=== PATIENT | female | born 1980 | race Caucasian/White ===

== ENCOUNTER 2019-08-09 10:07 | Emergency (ER) | payer OTHER, SELFPAY ==
--- NOTE | ~2019-08-09 | XR_ITS ---
EXAMINATION: XR foot LT min 3V DATE: 08/09/2019 10:31 INDICATION: Left foot injury and pain. TECHNIQUE: 4 views of left foot were obtained. COMPARISON: None. FINDINGS: There is mild hallux valgus. No fracture. There is mild osteoarthritis of first metatarsoph alangeal joint. There is an enthesophyte at posterior aspect of calcaneal tuberosity. IMPRESSION: 1. Mild hallux valgus. 2. Mild osteoarthritis of first metatarsophalangeal joint. Reviewed, dictated and finalized at location A. [employer]
[2019-08-09 10:19] VITALS: BP 126/76; PULSE 95; RESP 16; TEMP 36.1; O2SAT 100
--- NOTE | 2019-08-09 10:24 | ED.LOWEXIN ---
HPI - Extremity Injury (Lower) General Chief Complaint: Extremity Injury, Lower Stated Complaint: INJURED L ANKLE/FOOT Time Seen by Provider: 08/09/19 10:19 Source: patient and RN notes reviewed Mode of arrival: other Limitations: no limitations History of Present Illness HPI Narrative: Pt is a 39 y/o female, who is a smoker, who presents to the with c/o 5/10 left lateral foot pain that began this morning after letting her dogs out. Pt believes she rolled her ankle. She notes that her pain is aggravated with bearing her weight. Pt denies numbness and tingling. complaint: foot injury Onset (ago): minute(s) Place: street/outdoors Severity: moderate Severity scale (1-10): 5 Exacerbating factors: weight bearing Context: walking Associated symptoms: able to partially bear weight and ambulatory Other symptoms: none Related Data Home Medications Medication Instructions Recorded Confirmed gabapentin 100 mg PO HS 08/09/19 08/09/19 Allergies Allergy/AdvReac Type Severity Reaction Status Date / Time fexofenadine Allergy Severe FACIAL Verified 08/09/19 10:14 SWELLING ciprofloxacin Allergy Unknown Hives Verified 08/09/19 10:14 METOCLOPRAMIDE HCL Allergy Mild Nervousness Uncoded 08/09/19 10:14 CIPROFLOXACIN HCL Allergy Unknown Hives Uncoded 08/09/19 10:14 Review of Systems Review of Systems: Narrative: General/Constitutional: Denies: weight loss,fever Eyes: Denies: Redness,discharge Ears/Nose/Throat: Denies: Epistaxis,ear discharge Respiratory: Denies: Hemoptysis Gastrointestinal: Denies: Vomiting, Bleeding-rectal Skin: Denies: Lumps, eruption Neurologic: Denies: Focal Weakness,Sz, numbness, tingling Extremeties: Reports: left lateral foot pain Hematologic: Denies: Petechiae/Purpura All Other Systems: Reviewed and Negative All systems reviewed & are unremarkable except as noted in HPI and below PMFSH Past Medical History Medical History (Updated 08/09/19 @ 10:46 by Jamal Moreno MD) Anemia Kidney stone Polyhydramnios UTI (urinary tract infection) Surgical History Surgical History (Updated 08/09/19 @ 10:38 by Caroline Garcia) H/O lithotripsy x4 H/O total hysterectomy History of tubal ligation Hx of section x3 Hx of cholecystectomy Hx of fusion of cervical spine Family History Family History (Updated 08/09/19 @ 10:40 by Caroline Garcia) Father Hypertension Other Diabetes mellitus Social History Social History (Updated 08/09/19 @ 10:39 by Caroline Garcia) Smoking packs per day: 1 Smoking cigarettes per day: 20.0 Years smoked: 18 Smoking pack-years: 18.00 Smoking status: Current every day smoker Tobacco type: cigarettes Second hand tobacco smoke exposure: Yes Comments At time of signature, agree with nursing past medical, surgical, social and family history. There is no relevant family history pertinent to the presenting complaint. Exam Narrative: Exam Narrative: General Appearance: Well appearing, Well nourished, No distress EYE: PERRLA, EOMI, Conjunctiva clear Ears: External ear normal, Auditory canal normal Nose: Normal nose, Nares clear Mouth/Throat: Normal appearing, Normal lips Neck: Supple Respiratory: Airway patent, No respiratory distress Musculoskeletal: Normal strength (mostly intact, limited flexion/extension by pain), Tenderness (laterally, with mild decreased ROM), Swelling (laterally), Other (no anterior drawer, no collateral laxity, no Achilles tenderness, no fifth MT tenderness) Skin: Warm, Dry, Normal color Neurological: A&O x3, Speech clear, CN II-XII intact Psychiatric: Normal mood, Normal affect Course Vital Signs Vital signs: Vital Signs Temperature 97.0 F L 08/09/19 10:19 Pulse Rate 95 08/09/19 10:19 Respiratory Rate 16 08/09/19 10:19 Blood Pressure 126/76 08/09/19 10:19 Pulse Oximetry 100 08/09/19 10:19 Temperature 97.0 F L 08/09/19 10:19 Pulse Rate 95 08/09/19 10:19 Respirator
== END 2019-08-09 10:50 | disposition home or self-care (01) ==
PROVIDERS: Emergency Provider Emergency Medicine; PCP Family Medicine
DX: S93.402A Sprain of unspecified ligament of left ankle, initial encounter (principal); X50.9XXA Other and unspecified overexertion or strenuous movements or postures, initial encounter; F17.210 Nicotine dependence, cigarettes, uncomplicated
CPT/HCPCS: 73630; 99213; G0463

== ENCOUNTER 2020-06-15 06:42 | Outpatient (NON) | payer OTHER, SELFPAY ==
[2020-06-17 21:25] LABS: SARS-CoV-2 RNA PCR Negative
== END 2020-06-15 06:43 ==
LOC: ANHCOVIDDT 07:06
PROVIDERS: PCP Family Medicine; Visit Provider Physician Assistant
DX: Z20.828 Contact with and (suspected) exposure to other viral communicable diseases (principal); R09.89 Other specified symptoms and signs involving the circulatory and respiratory systems
CPT/HCPCS: 87635; C9803; U0003

== ENCOUNTER 2021-09-27 16:55 | Outpatient (CLI) | payer OTHER, SELFPAY ==
--- NOTE | ~2021-09-27 | MR_ITS ---
EXAMINATION: MR brain/brain stem wo con DATE: 09/27/2021 17:53 INDICATION: Foreign half years of migraines with progressively worsening left-sided facial numbness a nd pain. TECHNIQUE: Magnetic resonance imaging (MRI) of the brain and brainstem was performed without intraven ous contrast. Sequences included sagittal and axial T1-weighted FSE, axial diffusion-weighted FS EPI, axial T2*-weighted GRE, axial T2-weighted FLAIR Propeller, axial T2-weighted Propeller, 3-D axial T1 -weighted COLIN, small [id number] coronal FIESTA and small [id number]-[id number]-[id number] coronal T1-weighted FSE. Apparent diffusion coefficient (ADC) maps were created. COMPARISON: 05/31/2017 FINDINGS: There are no areas of restricted diffusion to suggest acute infarction. No intracranial hemorrhage or abnormal intracranial mass lesion. There are no intraparenchymal signal abnormalities seen on the ot her pulse sequences. The ventricles are symmetric and normal in size. There are no abnormal extra-axi al fluid collections. Normal seventh/eighth cranial nerve complexes. No cerebellopontine angles mass es. No evidence of mastoid or middle ear fluid. Flow voids are seen in the cerebral arteries on th e T2-weighted sequences consistent with their expected patency. Visualized orbits and soft tissues ar e unremarkable. IMPRESSION: 1. Normal brain MR. Reviewed, dictated and finalized at location A. ULTING NURSE IMPRESSION: 1. Normal brain MR.
== END 2021-09-27 16:56 | disposition home or self-care (01) ==
LOC: ANHIMG 17:01
PROVIDERS: PCP Family Medicine; Visit Provider Physical Medicine & Rehabilitation Pain Medicine
DX: R94.2 Abnormal results of pulmonary function studies (principal)
CPT/HCPCS: 70551

== ENCOUNTER 2022-01-01 16:50 | Emergency (ER) | payer OTHER, SELFPAY ==
--- NOTE | ~2022-01-01 | XR_ITS ---
EXAM: XR abdomen/kub 1V DATE: 01/01/2022 17:09 HISTORY: left flank pain . COMPARISON: None available. FINDINGS: Cholecystectomy clips. Surgical clips over the left abdomen and upper pelvis. Normal bowel gas pattern. No organomegaly. 5 mm left lower pole calcification. Regional bones and soft tissues no rmal for age. IMPRESSION: Left nephrolithiasis. No radiographic evidence of bowel obstruction or ileus. Reviewed, dictated and finalized at location K.
--- NOTE | 2022-01-01 17:03 | ED.FEMALEGU ---
HPI - Female Genitourinary General Chief complaint: Urogenital-Female Stated complaint: uti symptoms Time Seen by Provider: 01/01/22 17:03 Source: patient Mode of arrival: ambulatory Limitations: no limitations History of Present Illness HPI Narrative: 41 yo F presents with c/o intermittent dysuria, urgency, frequency, L flank pain since 12/18. Had telehealth visit with PCP and prescribed bactrim 12/19. did not give UA or culture prior to starting abx. States symptoms improved but not completely resolved. Then did UA that showed leukocytes. did 1 wk macrobid. Urine culture was neg. Reporting symptoms now worse. L flank pain radiating to L lower ABD. did call urologist 12/[address] was [address] needed CT scan. PCP ordered CT scan and is 01/03 but pt did not feel she could wait til then. Called ER and was told it was very busy and to come to [facility]. pt denies fever/chills. no N/V. hx of kidney stones. All systems reviewed and negative except as noted above. Related Data Allergies Allergy/AdvReac Type Severity Reaction Status Date / Time fexofenadine Allergy Severe FACIAL Verified 01/01/22 17:02 SWELLING ciprofloxacin Allergy Unknown Hives Verified 01/01/22 17:02 METOCLOPRAMIDE HCL Allergy Mild Nervousness Uncoded 01/01/22 17:02 CIPROFLOXACIN HCL Allergy Unknown Hives Uncoded 01/01/22 17:02 Review of Systems Review of Systems: CONSTITUTIONAL: Denies fever, chills, or sweats. EYES: Denies visual changes, redness, or discharge. ENT: Denies rhinorrhea, congestion, sore throat, or otalgia. CARDIOVASCULAR: Denies chest pain, palpitations, or edema. RESPIRATORY: Denies cough or dyspnea. GASTROINTESTINAL: Reports left lower abdominal pain denies nausea, vomiting, or diarrhea. GENITOURINARY: Reports dysuria, frequency, urgency, left flank pain. Denies hematuria. SKIN: Denies rash or itching. MUSCULOSKELETAL: Denies back pain, joint pain, or myalgia. NEUROLOGIC: Denies headache, numbness, or weakness. PSYCHIATRIC: Denies anxiety or depression. All other systems reviewed are negative, except as documented in HPI. [facility] Past Medical History Medical History (Updated 01/01/22 @ 17:33 by Jaqui Bailey NP) Anemia Depression Dysuria Kidney stone Left flank pain Ovarian cyst Polyhydramnios UTI (urinary tract infection) Surgical History Surgical History H/O lithotripsy (~2014) x4 H/O mastectomy (~2014) H/O total hysterectomy (~2014) History of tubal ligation Hx of section x3 Hx of cholecystectomy (~2013) Hx of fusion of cervical spine (~2008) Family History Family History Father Hypertension Mother Breast cancer Grandparent Heart disease Diabetes mellitus Cerebrovascular accident Social History Social History Smoking packs per day: 1 Smoking cigarettes per day: 20.0 Years smoked: 23 Smoking pack-years: 23.00 Smoking status: Current every day smoker Tobacco type: cigarettes Second hand tobacco smoke exposure: Yes Comments At time of signature, agree with nursing past medical, surgical, social and family history. There is no relevant family history pertinent to the presenting complaint. Exam Narrative: GENERAL: This is a well-nourished, well-developed patient, in no apparent distress. HEAD: normocephalic, atraumatic. EYES: PERRL. Sclera clear/white. Vision is grossly intact. EARS: External ears normal NOSE: External nose normal NECK: Neck supple, non-tender without lymphadenopathy, masses or thyromegaly. CARDIOVASCULAR: Regular rate and rhythm without murmurs, gallops, or rubs. RESPIRATORY: Clear to auscultation. Breath sounds equal bilaterally. No wheezes, rales, or rhonchi. GASTROINTESTINAL: Abdomen soft, non-tender, nondistended. Bowel sounds are active. No hepato-splenomegaly, or palpable masses. No guardin
[2022-01-01] MEDS: KETOROLAC (*BKC) 60 MG/2 ML VIAL IM (17:33)
[2022-01-01 17:49] VITALS: BP 120/60; PULSE 66; RESP 16; TEMP 36.9; O2SAT 97
== END 2022-01-01 17:47 | disposition home or self-care (01) ==
PROVIDERS: Emergency Provider Nurse Practitioner Family; PCP Family Medicine
DX: N20.0 Calculus of kidney (principal); F17.210 Nicotine dependence, cigarettes, uncomplicated
CPT/HCPCS: 74018; 81003; 87077; 87086; 87186; 96372; 99213; G0463; J1885

== ENCOUNTER 2022-01-03 17:33 | Outpatient (CLI) | payer OTHER, SELFPAY ==
--- NOTE | ~2022-01-03 | CT_ITS ---
EXAMINATION: CT abdomen pelvis wo con DATE: 01/03/2022 17:47 INDICATION: Left flank pain, hx of kidney stones TECHNIQUE: Computed tomography (CT) of the abdomen and pelvis was performed without intravenous contr ast. Automated exposure control and iterative reconstruction technique were employed. The dose-length product was 330.07 mGy-cm. COMPARISON: 10/19/2013. FINDINGS: Lower thorax: Unremarkable Liver: Normal. Biliary/Gallbladder: Gallbladder is absent. No bile duct dilation. Pancreas: No mass or duct dilation. Spleen: Normal. Adrenals:No mass. Kidneys: No mass. Chronic stable mild left pelviectasis. Stable 6 mm left lower pole calyceal calcifi cation. GI tract: No small or large bowel dilation. Normal appendix. Mesentery/Peritoneum: No ascites, mass, or free air. Retroperitoneum: No mass. Pelvis: Tiny possible calcification in the distal left ureter as it crosses the iliac vessels, truly at the limits of visibility by CT, alternatively may represent artifact. Soft Tissues: Soft tissues and body wall unremarkable. Bones: No acute osseous finding. IMPRESSION: Tiny, 1 mm calcific density projecting in the distal left ureter may represent a tiny distal collecti ng system stone versus artifact. No new hydronephrosis. Stable left nephrolithiasis and pelviectasis. Reviewed, dictated and finalized at location K. IMPRESSION: Tiny, 1 mm calcific density projecting in the distal left ureter may represent a tiny distal collecting system stone versus artifact. No new hydronephrosis. S table left nephrolithiasis and pelviectasis.
== END 2022-01-03 17:34 | disposition home or self-care (01) ==
PROVIDERS: PCP Family Medicine; Visit Provider Physician Assistant Medical
DX: R10.9 Unspecified abdominal pain (principal); N20.0 Calculus of kidney
CPT/HCPCS: 74176

== ENCOUNTER 2022-01-05 07:48 | Day surgery (SDC) | payer OTHER, SELFPAY ==
[2022-01-05] VITALS (10 sets, daily range): BP systolic 80–122; BP diastolic 50–67; PULSE 60–109; RESP 12–16; TEMP 35.7–37.1; O2SAT 98–99
--- NOTE | ~2022-01-05 | XR_ITS ---
EXAMINATION: XR stent kub - surgery DATE: 01/05/2022 14:20 CDT INDICATION: LEFT SIDE STENT . TECHNIQUE: 2 fluoroscopic images of the left mid abdomen and pelvis were obtained during ureteral aditi nt placement performed by the surgeon. I was not present in the operating room. Fluoroscopy exposure time was 13.9 seconds. Cumulative dose was 0.32107 mGy2. COMPARISON: None FINDINGS: Fluoroscopic images document placement of a left ureteral stent, the superior pigtail is unravelled b ut projects over the expected location of the left renal pelvis. The distal coil projects over the bl adder. IMPRESSION: Fluoroscopic documentation of a left ureteral stent placement. Reviewed, dictated and finalized at location K.
--- NOTE | 2022-01-05 08:06 | ED.ABDPAIN ---
HPI - Abdominal Pain General Chief Complaint: Abdominal Pain Stated Complaint: Kidney Stone Pain Time Seen by Provider: 01/05/22 07:58 Source: RN notes reviewed History of Present Illness HPI narrative: Patient presents emergency department from home for abdominal pain. Patient states symptoms began approximately 5 days ago. States that she began to have pain in her left flank and her left side of her abdomen she had gone to urgent care at that time and a KUB had shown a kidney stone states that time she had also been diagnosed with a UTI and been started on Augmentin and Flomax she had follow-up with her PCP 2 days later had a CT scan showing stone has not been able to get into urology until this coming Saturday states the pain is continued to worsen she states is now associated with nausea as well as diarrhea she denies any fevers or chills chest pain shortness of breath vomiting or any other symptoms states she took oral Toradol at home this morning with no relief states she does have a history of kidney stones in the past Related Data Allergies Allergy/AdvReac Type Severity Reaction Status Date / Time fexofenadine Allergy Severe FACIAL Verified 01/05/22 09:08 SWELLING ciprofloxacin Allergy Unknown Hives Verified 01/05/22 09:08 METOCLOPRAMIDE HCL Allergy Mild Nervousness Uncoded 01/05/22 08:16 CIPROFLOXACIN HCL Allergy Unknown Hives Uncoded 01/05/22 08:16 Review of Systems Review of Systems: Gen.: Denies fevers or chills ENT: Denies congestion Respiratory: Denies shortness of breath or cough CV: Denies chest pain or palpitations GI: See HPI denies burning, urgency, frequency or hematuria Musculoskeletal: Denies back pain or muscle pain Neuro: Denies numbness, tingling, weakness or focal weakness Skin: Denies rash Except as documented, all other systems reviewed and negative PMF Past Medical History Medical History Anemia Depression Dysuria Kidney stone Left flank pain Ovarian cyst Polyhydramnios UTI (urinary tract infection) Surgical History Surgical History H/O lithotripsy (~2014) x4 H/O mastectomy (~2014) H/O total hysterectomy (~2014) History of tubal ligation Hx of section x3 Hx of cholecystectomy (~2013) Hx of fusion of cervical spine (~2008) Family History Family History Father Hypertension Mother Breast cancer Grandparent Heart disease Diabetes mellitus Cerebrovascular accident Social History Social History Smoking packs per day: 1 Smoking cigarettes per day: 20.0 Years smoked: 23 Smoking pack-years: 23.00 Smoking status: Current every day smoker Tobacco type: cigarettes Second hand tobacco smoke exposure: Yes Exam Narrative: APPEARANCE: No acute distress, nontoxic, resting in bed HEENT: Normocephalic, atraumatic, OMM RESPIRATORY: No respiratory distress, clear to auscultation bilaterally with no rhonchi wheezing or rales CARDIOVASCULAR: RRR s murmur ABDOMINAL: Soft nondistended tender palpation lateral quadrant left lower quadrant no tenderness right upper quadrant right lower quadrant no rebound or guarding, left flank tenderness MUSCULOSKELETAl: Moves all extremities. No clubbing, cyanosis or edema. NEURO: Awake and alert. Following commands, speech normal, no focal deficits SKIN:: Warm, dry. Normal Color PSYCHIATRIC: Normal affect/mood Course Course Emergency Course: Reviewed old record including CT scan from [address] waldrop history reviewed imaging and lab work we will plan to take patient to the OR for stent today And plan for OR in agreement at this time Vital Signs Vital signs: Vital Signs Temperature 96.3 F L 01/05/22 07:57 Pulse Rate 109 H 01/05/22 07:57 Respiratory Rate 16 01/05/22 07:57 Pu
[2022-01-05 08:20] LABS: Basophils Absolute Auto 0.1 K/mm3 (0.0-0.1); Basophils Percent Auto 0.5 % (0.2-1.2); Eosinophils Absolute Auto 0.2 K/mm3 (0-0.3); Eosinophils Percent Auto 2.1 % (0-4.4); Hematocrit 45.2 % (37.0-47.0); Hemoglobin 16.1 g/dL (12.0-15.0); Immature Granulocyte Absolute 0.02 K/mm3 (0.00-0.031); Immature Granulocyte Percent A 0.2 % (0-0.5); Lymphocytes Absolute Auto 2.08 K/mm3 (0.9-3.2); Lymphocytes Percent Auto 22.6 % (18.3-44.2); Mean Corpuscular HGB Conc 35.6 g/dl (32-36); Mean Corpuscular Hemoglobin 33.2 pg (26-34); Mean Corpuscular Volume 93.2 fl (80-100); Mean Platelet Volume 9.6 fl (7.4-10.4); Monocytes Absolute Auto 0.6 K/mm3 (0.1-0.6); Monocytes Percent Auto 6.5 % (2.6-8.5); Neutrophils Absolute Auto 6.3 K/mm3 (1.3-6.7); Neutrophils Percent Auto 68.1 % (45.5-73.1); Platelet Count Result 181 k/mm3 (150-375); Red Blood Count 4.85 M/mm3 (4.2-5.4); White Blood Count 9.2 K/mm3 (4.5-10.0)
[2022-01-05 08:28] LABS: Alanine Aminotransferase 27 U/L (6-35); Albumin Level 4.9 g/dL (3.5-5.1); Alkaline Phosphatase 91 U/L (38-126); Anion Gap 9 mmol/L (8-16); Aspartate Amino Transferase 27 U/L (14-36); Blood Urea Nitrogen 21 mg/dL (7-17); Calcium 9.5 mg/dL (8.4-10.2); Carbon Dioxide 22 mmol/L (22-30); Chloride 111 mmol/L (98-107); Estimated CRCL calculation 102 ml/min; Estimated Glomerular Filt Rate > 60; Glucose 105 mg/dL (65-110); Lipase 62 U/L (23-300); Potassium 4.4 mmol/L (3.4-5.0); Sodium 142 mmol/L (137-145)
[2022-01-05 08:36] LABS: Add Urine Microscopic? YES; Appearance Urine Cloudy (Clear); Bilirubin Urine Negative (Negative); Blood Urine 2+ (Negative); Color Urine Yellow (Yellow); Glucose Urine UA Negative (Negative); Ketones Urine Negative (Negative); Leukocyte Esterase Ur 2+ LEU/UL (Negative); Nitrate Urine Negative (Negative); Protein Urine 2+ mg/dL (Negative); Specific Grav Ur >= 1.030 (1.001-1.035); Urobilinogen Urine 0.2 mg/dL (<2.0); pH Urine 5.5 (5.0-9.0)
[2022-01-05 08:43] LABS: Lactic Acid Reflex 2.1 mmol/L (0.7-2.0)
[2022-01-05 08:45] LABS: Bacteria Urine 2+ /hpf; Mucus Urine Few /lpf; RBC Urine 21-50 /hpf (0-2); Squamous Epithelial Cell Urine Many /hpf (Few); WBC Clumps Urine Present /HPF; WBC Urine >75 /hpf
[2022-01-05] MEDS: SODIUM CHLORIDE 0.9% IV 1,000 ML 999 ML IV CONT (09:07)
[2022-01-05] MEDS: MORPHINE SULFATE (*CRX) 4 MG/ML INJ IV PUSH (09:08)
[2022-01-05] MEDS: ONDANSETRON INJ 4 MG/2 ML VIAL IV PUSH (09:08)
--- NOTE | 2022-01-05 09:37 | PM.HPGS ---
History of Present Illness History of Present Illness Consent: Risks, benefits, and alternatives have been discussed and questions answered. Patient agrees to proceed with procedure. Chief complaint: Kidney Stone Pain Narrative: Vy Guthrie is a 41 year old female, Who has a history of urolithiasis requiring ESWL several years ago, the that has presented to the ER 3 times in last 5 days with left flank pain and irritable voiding symptoms. This pain is intermittent in nature but can be severe at times. It is associated with nausea vomiting in addition to irritable voiding. Urine culture obtained on 01/01 grew E coli. She has had little improvement in symptoms with oral antibiotics (most recently Augmentin ). Throughout this she denies fevers chills gross hematuria. Imaging demonstrates a 5-6 mm left renal pelvic stone and a suggestion of a 1 mm stone in the left mid ureter without significant hydronephrosis point. After discussion of options we elected for cystoscopy with left ureteral stent placement. Following treatment her infection we will schedule left ESWL. Review of Systems Cardiovascular: Cardiovascular: Denies chest pain, Denies lightheadedness, Denies palpitations and Denies dyspnea Respiratory: Respiratory: Denies dyspnea Gastrointestinal: Gastrointestinal: Denies diarrhea, Denies nausea and Denies vomiting Genitourinary: Genitourinary: Denies hematuria and Denies dysuria Endocrine: Endocrine: Denies palpitations PMFSH Past Medical History Medical History Anemia Depression Dysuria Kidney stone Left flank pain Ovarian cyst Polyhydramnios UTI (urinary tract infection) Surgical History Surgical History H/O lithotripsy (~2014) x4 H/O mastectomy (~2014) H/O total hysterectomy (~2014) History of tubal ligation Hx of section x3 Hx of cholecystectomy (~2013) Hx of fusion of cervical spine (~2008) Family History Family History Father Hypertension Mother Breast cancer Grandparent Heart disease Diabetes mellitus Cerebrovascular accident Social History Social History Smoking packs per day: 1 Smoking cigarettes per day: 20.0 Years smoked: 23 Smoking pack-years: 23.00 Smoking status: Current every day smoker Tobacco type: cigarettes Second hand tobacco smoke exposure: Yes Meds Home Medications and Allergies Home Medications Medication Instructions Recorded Confirmed Type amoxicillin 875 mg-potassium 1 tablet PO BID 7 days #14 tabs 01/01/22 Rx clavulanate 125 mg tablet indomethacin 25 mg capsule 25 mg PO TID PRN pain #30 caps 01/01/22 Rx tamsulosin 0.4 mg capsule (Flomax) 0.4 mg PO DAILY #30 caps 01/01/22 Rx tramadol 50 mg tablet 50 mg PO Q6H PRN pain #30 tabs 01/04/22 Rx Allergies Allergy/AdvReac Type Severity Reaction Status Date / Time fexofenadine Allergy Severe FACIAL Verified 01/05/22 09:08 SWELLING ciprofloxacin Allergy Unknown Hives Verified 01/05/22 09:08 METOCLOPRAMIDE HCL Allergy Mild Nervousness Uncoded 01/05/22 08:16 CIPROFLOXACIN HCL Allergy Unknown Hives Uncoded 01/05/22 08:16 Vital Signs Vital Signs - 24 hr 01/05/22 07:57 01/05/22 08:10 01/05/22 08:09 Temperature 96.3 F L 98.8 F 98.8 F Pulse Rate 109 H Respiratory Rate 16 Pulse Oximetry 98 Oxygen Delivery Room Air Exam Const: General: no acute distress Resp: Effort & Inspection: normal respiratory effort GI: Inspection: non-distended GI Palp: No abdominal tenderness and No Guarding due to palpation present (GI) Auscultation: normal bowel sounds Assessment and Plan Assessment and plan (1) Left renal stone: Code(s): N20.0 - Calculus of kidney Status: Acute Assessment and Plan: Cystoscopy, left uretera
--- NOTE | 2022-01-05 09:41 | WPDHPUPDATE1 ---
History and Physical Update Update Date/Time: 01/05/22 09:41 History and Physical has been reviewed, including an updated exam of the patient. There are NO changes in the patient's condition. Risks, benefits, and alternatives have been discussed and questions answered. Patient agrees to proceed with procedure.
[2022-01-05] MEDS: LACTATED RINGERS 1,000 ML 30 ML IV CONT (10:25)
[2022-01-05] MEDS: HYDROmorphone HCL INJ (*CRX) 1 MG/ML SYR IV PUSH ×2 (10:56→13:22)
[2022-01-05 11:24] LABS: Reflex Lactic Acid Yes or No Add Lactic
--- NOTE | 2022-01-05 14:05 | WPDANESEPPF ---
Anes - Initial Pre Proc Eval Procedure: Operation Date: 01/05/22 14:30 Proposed Procedures p Cystoscopy, Left Stent Placement - Riley Lau MD Date/Time: 01/05/22 14:05 Surgeon: Riley Lau MD Pre Op Diagnosis: Kidney Stone Pain Patient Data Age: 41 Gender: F Height: 1.78 m Weight: 98.18 kg Last Vital Signs Temp 36.2 C L 01/05/22 10:25 Pulse 63 01/05/22 10:25 Resp 16 01/05/22 10:25 BP 99/59 L 01/05/22 10:25 Pulse Ox 99 01/05/22 10:25 O2 Del Method Room Air 01/05/22 10:25 Allergies Allergy/AdvReac Type Severity Reaction Status Date / Time fexofenadine Allergy Severe FACIAL Verified 01/05/22 09:08 SWELLING ciprofloxacin Allergy Unknown Hives Verified 01/05/22 09:08 METOCLOPRAMIDE HCL Allergy Mild Nervousness Uncoded 01/05/22 08:16 CIPROFLOXACIN HCL Allergy Unknown Hives Uncoded 01/05/22 08:16 Home Medications Medication Instructions Recorded Confirmed Type amoxicillin 875 mg-potassium 1 tablet PO BID 7 days #14 tabs 01/01/22 Rx clavulanate 125 mg tablet indomethacin 25 mg capsule 25 mg PO TID PRN pain #30 caps 01/01/22 Rx tamsulosin 0.4 mg capsule (Flomax) 0.4 mg PO DAILY #30 caps 01/01/22 Rx tramadol 50 mg tablet 50 mg PO Q6H PRN pain #30 tabs 01/04/22 Rx Laboratory Tests 01/05/22 01/05/22 01/05/22 08:04 08:04 08:04 WBC 9.2 K/mm3 K/mm3 (4.5-10.0) RBC 4.85 M/mm3 M/mm3 (4.2-5.4) Hgb 16.1 g/dL H g/dL (12.0-15.0) Hct 45.2 % % (37.0-47.0) MCV 93.2 fl fl (80-100) MCH 33.2 pg pg (26-34) MCHC 35.6 g/dl g/dl (32-36) RDW 13.0 % % (11.5-14.5) Plt Count 181 k/mm3 k/mm3 (150-375) MPV 9.6 fl fl (7.4-10.4) Immature Gran % (Auto) 0.2 % % (0-0.5) Neut % (Auto) 68.1 % % (45.5-73.1) Lymph % (Auto) 22.6 % % (18.3-44.2) [place] % (Auto) 6.5 % % (2.6-8.5) Eos % (Auto) 2.1 % % (0-4.4) Baso % (Auto) 0.5 % % (0.2-1.2) Lymph # (Auto) 2.08 K/mm3 K/mm3 (0.9-3.2) [place] # (Auto) 0.6 K/mm3 K/mm3 (0.1-0.6) Eos # (Auto) 0.2 K/mm3 K/mm3 (0-0.3) Baso # (Auto) 0.1 K/mm3 K/mm3 (0.0-0.1) Abs Immat Gran (auto) 0.02 K/mm3 K/mm3 (0.00-0.031) Absolute Neuts (auto) 6.3 K/mm3 K/mm3 (1.3-6.7) Absolute Nucleated RBC 0.0 K/mm3 K/mm3 (0.0-0.012) Nucleated RBC % 0.0 % % (0.0-0.2) Sodium 142 mmol/L mmol/L (137-145) Potassium 4.4 mmol/L mmol/L (3.4-5.0) Chloride 111 mmol/L H mmol/L (98-107) Carbon Dioxide 22 mmol/L mmol/L (22-30) Anion Gap 9 mmol/L mmol/L (8-16) BUN 21 mg/dL H mg/dL (7-17) Creatinine 0.80 mg/dL mg/dL (0.7-1.0) Estim Creat Clear Calc 102 ml/min ml/min Estimated GFR > 60 (59 - ) Glucose 105 mg/dL mg/dL (65-110) Lactic Acid Calcium 9.5 mg/dL mg/dL (8.4-10.2) Total Bilirubin 1.0 mg/dL mg/dL (0.2-1.3) AST 27 U/L U/L (14-36) ALT 27 U/L U/L (6-35) Alkaline Phosphatase 91 U/L U/L (38-126) Total Protein 8.0 g/dL g/dL (6.3-8.2) Albumin 4.9 g/dL g/dL (3.5-5.1) Lipase 62 U/L U/L (23-300) Urine Color Yellow (Yellow) Urine Appearance Cloudy H (Clear) Urine pH 5.5 (5.0-9.0) Ur Specific [place] >= 1.030 (1.001-1.035) Urine Protein 2+ mg/dL H mg/dL (Negative) Urine Glucose (UA) Negative mg/dL mg/dL (Negative) Urine Ketones Negative mg/dL mg/dL (Negative) Ur Blood (Man) 2+ H (Negative) Urine Nitrate Negative (Negative) Urine Bilirubin Negative (Negative) Urine Urobilinogen 0.2 mg/dL mg/dL (<2.0) Leukocyte Esterase Rfl 2+ LISA/UL H LISA/UL (Negative)
--- NOTE | 2022-01-05 14:41 | W.PM.PROC2 ---
Procedure Note - Detailed Date of Procedure 01/05/22 Pre-op Diagnosis Left renal stone Post-op Diagnosis Same Procedure Performed Cystoscopy left ureteral stent placement Surgeon Riley Lau MD Description of Procedure The patient was brought to the operative suite where she was prepped and draped in a routine sterile fashion while in the dorsal lithotomy position. A 19 F rigid cystoscope was placed in her bladder and the bladder was circumferentially inspected. The bladder neck and urethra were endoscopically normal. The bladder mucosa was without hyperemia. There was no intravesical foreign body or neoplasm. There was a single orthotopic ureteral orifice bilaterally. I advanced .035 glidewire into the left renal pelvis under fluoroscopy. A 4.8F variable length ureteral stent was positioned with the proximal coil in the renal pelvis and the distal coil in the bladder. Scopes and wires were removed after emptying the patient's bladder. Drains Yes Packing No Pathology None sent Complications No immediate complications Condition Stable
== END 2022-01-05 15:50 | disposition home or self-care (01) ==
LOC: ANHED 09:18 → ANHSURGERY 09:19
PROVIDERS: Emergency Provider Emergency Medicine; PCP Family Medicine; Visit Provider Urology
PROC: (CPT 52352; principal; 2022-01-05 14:30)
DX: N20.0 Calculus of kidney (principal); D64.9 Anemia, unspecified; F32.A Depression, unspecified; R30.0 Dysuria; F17.210 Nicotine dependence, cigarettes, uncomplicated; E66.9 Obesity, unspecified; Z68.31 Body mass index [BMI] 31.0-31.9, adult
CPT/HCPCS: 52332; 36415; 80053; 81001; 83605; 83690; 85025; 87086; 96365; 96375; 99285; C1769; C2617; J0696; J1170; J2250; J2270; J2405; J2704; J3010; J7030; J7120

== ENCOUNTER 2022-01-09 10:10 | Day surgery (SDC) | payer OTHER, SELFPAY ==
[2022-01-09] VITALS (8 sets, daily range): BP systolic 108–137; BP diastolic 68–80; PULSE 57–90; RESP 14–19; TEMP 36.3–36.4; O2SAT 95–100; BMI 30.2
--- NOTE | ~2022-01-09 | XR_ITS ---
EXAMINATION: XR abdomen/kub 1V DATE: 01/09/2022 10:57 INDICATION: Left flank pain with renal stone. Preoperative evaluation. TECHNIQUE: A supine view of the abdomen on 2 radiographs was obtained. COMPARISON: CT dated 01/03/2022 and fluoroscopic images dated 01/05/2022 FINDINGS: Again seen is a left internal ureteral stent in expected position with loops formed in the regions of the bladder and left renal pelvis. Unchanged 6 mm stone projecting over the lower pole of the left k idney. No other evident urolithiasis. Postoperative changes with multiple surgical clips in the pelvi s. Normal bowel gas pattern. Mild discoid atelectasis in bilateral lung bases. IMPRESSION: 1. Unchanged 6 mm stone at the lower pole the left kidney with left internal ureteral stent in expect ed position. Reviewed, dictated and finalized at location B. IMPRESSION: 1. Unchanged 6 mm stone at the lower pole the left kidney with left internal ur eteral stent in expected position.
--- NOTE | 2022-01-09 10:12 | P.HP_ITS ---
History of Present Illness History of Present Illness Consent: Risks, benefits, and alternatives have been discussed and questions answered. Patient agrees to proceed with procedure. Chief complaint: left ureteral stone Narrative: Vy Guthrie is a 41 year old female, who was seen last week with an obstructing left ureteral stone and urinary tract infection. She underwent cysto with stent placement. Now that her infection has been treated (follow-up urine culture negative) she is back for left ESWL. She is aware the risk including, but not limited to, adverse cardiopulmonary events, perinephric hematoma, residual stone fragments that may obstructing cause pain. [facility] Past Medical History Medical History Anemia Depression Dysuria Kidney stone Left flank pain Ovarian cyst Polyhydramnios UTI (urinary tract infection) Surgical History Surgical History H/O lithotripsy (~2014) x4 H/O mastectomy (~2014) H/O total hysterectomy (~2014) History of tubal ligation Hx of section x3 Hx of cholecystectomy (~2013) Hx of fusion of cervical spine (~2008) Family History Family History Father Hypertension Mother Breast cancer Grandparent Heart disease Diabetes mellitus Cerebrovascular accident Social History Social History Smoking packs per day: 1 Smoking cigarettes per day: 20.0 Years smoked: 23 Smoking pack-years: 23.00 Smoking status: Current every day smoker Tobacco type: cigarettes Second hand tobacco smoke exposure: Yes Meds Home Medications and Allergies Home Medications Medication Instructions Recorded Confirmed Type amoxicillin 875 mg-potassium 1 tablet PO BID 7 days #14 tabs 01/01/22 Rx clavulanate 125 mg tablet indomethacin 25 mg capsule 25 mg PO TID PRN pain #30 caps 01/01/22 Rx tamsulosin 0.4 mg capsule (Flomax) 0.4 mg PO DAILY #30 caps 01/01/22 Rx tramadol 50 mg tablet 50 mg PO Q6H PRN pain #30 tabs 01/04/22 Rx hydrocodone 5 mg-acetaminophen 325 1 - 2 tablet PO Q6H PRN pain #25 01/05/22 Rx mg tablet tabs Allergies Allergy/AdvReac Type Severity Reaction Status Date / Time fexofenadine Allergy Severe FACIAL Verified 01/05/22 09:08 SWELLING ciprofloxacin Allergy Unknown Hives Verified 01/05/22 09:08 METOCLOPRAMIDE HCL Allergy Mild Nervousness Uncoded 01/05/22 08:16 CIPROFLOXACIN HCL Allergy Unknown Hives Uncoded 01/05/22 08:16 Exam Const: General: no acute distress Resp: Effort & Inspection: normal respiratory effort GI: Inspection: non-distended GI Palp: No abdominal tenderness and No Guarding due to palpation present (GI) Auscultation: normal bowel sounds Assessment and Plan Assessment and plan (1) Kidney stone on left side: Code(s): N20.0 - Calculus of kidney Status: Acute Assessment and Plan: * Cystoscopy, left ureteral stent removal, left ESWL
--- NOTE | 2022-01-09 10:15 | WPDHPUPDATE1 ---
History and Physical Update Update Date/Time: 01/09/22 10:15 History and Physical has been reviewed, including an updated exam of the patient. There are NO changes in the patient's condition. Risks, benefits, and alternatives have been discussed and questions answered. Patient agrees to proceed with procedure.
--- NOTE | 2022-01-09 11:09 | P.PNAN_ITS ---
Anes - Initial Pre Proc Eval Procedure: Operation Date: 01/09/22 12:00 Proposed Procedures p Left Ureteral Extracorporeal Shock Wave Lithotripsy, - Riley Lau MD s Possible Cystoscopy, Possible Left Stent Removal - Riley Lau MD Date/Time: 01/09/22 11:09 Surgeon: Riley Lau MD Pre Op Diagnosis: left ureteral stone Patient Data Age: 41 Gender: F Height: 1.78 m Weight: 95.7 kg Allergies Allergy/AdvReac Type Severity Reaction Status Date / Time ciprofloxacin Allergy Severe Hives Verified 01/09/22 10:35 fexofenadine Allergy Severe FACIAL Verified 01/09/22 10:35 SWELLING metoclopramide [From Reglan] AdvReac Severe Anxiety Verified 01/09/22 10:35 Home Medications Medication Instructions Recorded Confirmed Type amoxicillin 875 mg-potassium 1 tablet PO BID 7 days #14 tabs 01/01/22 01/09/22 Rx clavulanate 125 mg tablet hydrocodone 5 mg-acetaminophen 325 1 - 2 tablet PO Q6H PRN pain #25 01/05/22 01/09/22 Rx mg tablet tabs hyoscyamine sulfate 0.125 mg tablet 0.125 mg PO QID 01/09/22 01/09/22 History tamsulosin 0.4 mg capsule (Flomax) 0.4 mg PO HS 01/09/22 01/09/22 History Patient hx anesthesia problems: none Family hx anesthesia problems: none Results Review: All pre-operative results and documents have been reviewed as part of the pre- operative evaluation. [facility] Past Medical History Medical History Anemia Depression Dysuria Kidney stone Left flank pain Ovarian cyst Polyhydramnios UTI (urinary tract infection) Surgical History Surgical History H/O lithotripsy (~2014) x4 H/O mastectomy (~2014) H/O total hysterectomy (~2014) History of tubal ligation Hx of section x3 Hx of cholecystectomy (~2013) Hx of fusion of cervical spine (~2008) Family History Family History Father Hypertension Mother Breast cancer Grandparent Heart disease Diabetes mellitus Cerebrovascular accident Social History Social History (Updated 01/09/22 @ 11:14 by Alejandro Arnold DO) Smoking packs per day: 1 Smoking cigarettes per day: 20.0 Years smoked: 23 Smoking pack-years: 23.00 Smoking status: Former smoker Tobacco type: cigarettes Second hand tobacco smoke exposure: Yes Anes - Eval Final PreProcedure Day of Procedure 01/09/22 11:09 Patient weight: obese Heart: regular rate and rhythm Lungs: clear to auscultation Airway: Mallampati scale class II Neurological: alert and oriented Last oral intake: >/= 8 hours ASA classification: II Emergent: no Anesthetic plan: proceed Anesthesia type and monitoring: general LMA and standard monitoring Results Review: All pre-operative results and documents have been reviewed as part of the pre- operative evaluation. Informed Consent: The patient's anesthetic plan and its attendant risks and benefits were discussed with the patient/family/POA. Questions were solicited and answers provided to the satisfaction of the patient/family/POA.
[2022-01-09] MEDS: LACTATED RINGERS 1,000 ML 30 ML IV CONT (11:17)
[2022-01-09] MEDS: fentaNYL CITRATE INJ (*CRX) 100 MCG/2 ML VIAL 25 MCG IV PUSH (11:27)
[2022-01-09 11:28] LABS: INR 1.1; Prothrombin Time 13.6 Seconds (11.1-14.7)
[2022-01-09 11:29] LABS: Partial Thromboplastin Time 26.6 SECONDS (22.3-36.8)
[2022-01-09] MEDS: ceFAZolin 2 GM/D5W 50 ML 2 GM/50 ML BAG IVPB (11:53)
--- NOTE | 2022-01-09 12:23 | P.OP_ITS ---
Procedure Note - Detailed Date of Procedure 01/09/22 Pre-op Diagnosis Left renal stone Post-op Diagnosis Same Procedure Performed Left ESWL, cysto. left stent removal Surgeon Riley Lau MD Description of Procedure The patient was brought to the operative suite where she was placed in the frog- legged position on the Dornier lithotripter table. Flexible cystoscopy was undertaken with a 16F flexible cystoscopy. Her urethra and bladder neck were endoscopically normal. The bladder mucosa was normal and there was a single, orthotopic ureteral orifice bilaterally. The tip of the indwelling stent was grasped the stent was removed with ease. The patient was then repositioned in the supine position and the focal point of the lithotriptor was placed at a 5- 6mm left renal calculus. A total of 2500 shocks were delivered at a power setting of 4. There appeared to be good fragmentation of the stone. The patient tolerated the procedure well and was taken to the recovery room in good condition. Drains No Pathology None sent Complications None Condition Stable
[2022-01-09] MEDS: oxyCODONE HCL (*CRX) 5 MG TAB IR PO (13:41)
== END 2022-01-09 14:07 | disposition home or self-care (01) ==
PROVIDERS: PCP Family Medicine; Visit Provider Urology
PROC: (CPT 50590; principal; 2022-01-09 12:00)
PROC: (CPT 52352; 2022-01-09 12:00)
DX: N20.0 Calculus of kidney (principal); F17.210 Nicotine dependence, cigarettes, uncomplicated; E66.9 Obesity, unspecified; Z68.30 Body mass index [BMI] 30.0-30.9, adult
CPT/HCPCS: 50590; 52310; 36415; 74018; 85610; 85730; A9270; J0690; J1100; J2250; J2405; J2704; J3010; J7030; J7120

== ENCOUNTER 2025-02-04 10:50 | Emergency (ER) | payer OTHER, SELFPAY ==
--- NOTE | ~2025-02-04 | XR_ITS ---
Right Shoulder Technique: AP and scapular Y views were obtained. Clinical History: Pain Findings: No fracture or dislocation is seen. Osseous alignment is anatomic. The glenohumeral and acr omioclavicular joint spaces are preserved. Soft tissues are unremarkable. Impression: Unremarkable right shoulder radiographs. Reviewed, dictated and finalized at [facility]. Impression: Unremarkable right shoulder radiographs.
[2025-02-04 11:06] VITALS: BP 128/75; PULSE 87; RESP 16; TEMP 35.9; O2SAT 99
--- NOTE | 2025-02-04 11:28 | ED_ITS ---
HPI - Extremity Injury (Upper) General Chief Complaint: Extremity Injury, Upper Stated Complaint: R Shoulder Pain Patient initially Express Care with complaints worsening pain to right shoulder that began 4 days ago. Patient noted a few days before pain began she was helping move her in-laws. Denies any specific injury or trauma to the right shoulder. Patient has been using ibuprofen with minimal relief of symptoms. Patient unable to get comfortable at night time. Denies any topical medications, ice or heat. Related Data Home Medications ?Medication ?Instructions ?Recorded ?Confirmed ?Last Taken ?Type hyoscyamine sulfate 0.125 mg tablet 0.125 mg PO QID 01/09/22 01/09/22 01/09/22 06:30 History tamsulosin 0.4 mg capsule (Flomax) 0.4 mg PO HS 01/09/22 01/09/22 01/08/22 History Allergies Allergy/AdvReac Type Severity Reaction Status Date / Time ciprofloxacin Allergy Severe Hives Verified 01/09/22 10:35 fexofenadine Allergy Severe FACIAL Verified 01/09/22 10:35 SWELLING metoclopramide (From Reglan) AdvReac Severe Anxiety Verified 01/09/22 10:35 Review of Systems Constitutional: Constitutional: Reports as per HPI Eyes: Eyes: Reports no additional eye complaints ENT: Reports system reviewed and no additional complaints, except as documented Cardiovascular: Cardiovascular: Reports no additional cardiovascular complaints Respiratory: Respiratory: Reports no additional respiratory complaints Gastrointestinal: Gastrointestinal: Reports no additional gastrointestinal complaints Genitourinary: Genitourinary: Reports no additional female genitourinary complaints Musculoskeletal: Musculoskeletal: Reports as per HPI, Reports arthralgias, Denies joint swelling and Reports muscle cramps Integumentary/Breasts: Skin/Breast: Reports as per HPI, Denies pruritus, Denies erythema and Denies rash Neurologic: Reports as per HPI, Denies numbness and Denies weakness Psychiatric: Psychiatric: Reports no additional psychiatric complaints Endocrine: Endocrine: Reports no additional endocrine complaints Hematologic/Lymphatic: Hematologic/Lymphatic: Reports no additional hematologic/lymphatic complaints Allergic/Immunologic: Allergic/Immunologic: Reports no additional allergic/immunologic complaints [facility] Past Medical History Medical History Anemia Depression Dysuria Kidney stone Left flank pain Ovarian cyst Polyhydramnios UTI (urinary tract infection) Surgical History Surgical History H/O lithotripsy (~2014) x4 H/O mastectomy (~2014) H/O total hysterectomy (~2014) History of tubal ligation Hx of section x3 Hx of cholecystectomy (~2013) Hx of fusion of cervical spine (~2008) Family History Family History Father Hypertension Mother Breast cancer Grandparent Heart disease Diabetes mellitus Cerebrovascular accident Social History Social History (Updated 01/09/22 @ 11:14 by Alejandro Arnold DO) Smoking packs per day: 1 Smoking cigarettes per day: 20.0 Years smoked: 23 Smoking pack-years: 23.00 Smoking status: Former smoker Tobacco type: cigarettes Second hand tobacco smoke exposure: Yes Exam Const: General: healthy appearing and no acute distress Nutritional Appearance: well nourished Orientation/consciousness: patient oriented x3 Limitations: no limitations Neck: Neck: not normal to visual inspection, no lymphadenopathy and no me ningeal signs Other: Tenderness paracervical muscles on the right and around right shoulder. Cervical vertebrae no tenderness noted. No swelling, redness, rash, or bruising noted Chest: Chest palpation & inspection: normal inspection of the chest, no tenderness and No Pacemaker present Resp: Effort & Inspection: normal respiratory effort Auscultation: clear to auscultation bilaterally Cardio: Rate: regular rate Rhythm: regular rhythm Skin: General skin exam: normal color Rashes: no rashes Wounds: no wounds Neuro: General: patient oriented x3 and moves all extremities Speech: normal speech Gait exam (Neuro): Normal gait present Extrem: Right upper extremity: shoulder/upper arm abnormal to inspection (favoring this shoulder/pulling down of the right shoulder ), tenderness, axillary nerve sensory function normal, abnormal ROM and crepitus; no swelling, no abrasions, no lacerations, no ecchymosis, no foreign bodies, no penetrating wound, no deformity and no unusual warmth Psych: Mental Status: mental status grossly normal Affect: normal affect Attitude: cooperative Course Course Level of Care: Express Care Visit Vital Signs Vital signs: Vital Signs Temperature 96.7 F L 02/04/25 11:06 Pulse Rate 87 02/04/25 11:06 Respiratory Rate 16 02/04/25 11:06 Blood Pressure 128/75 02/04/25 11:06 Pulse Oximetry 99 02/04/25 11:06 Temperature 96.7 F L 02/04/25 11:06 Pulse Rate 87 02/04/25 11:06 Respiratory Rate 16 02/04/25 11:06 Blood Pressure 128/75 02/04/25 11:06 Pulse Oximetry 99 02/04/25 11:06 MDM - Extremity Injury (Upper) MDM Narrative Medical decision making narrative: x-rays ordered and completed. Discharge instructions reviewed with patient, as well as provided in writing per nursing staff. The instructions also include specific and strict return/GO TO THE ER as well as f/u information. All questions have been answered, and the patient deny any further questions with discharge and discharge plan. Differential Diagnosis Differential diagnosis: Likely dislocation of shoulder, fracture of humerus and fracture of clavicle Medical Records Attestation: I reviewed the patient's medical records. Imaging Data Radiologist's impression: Impression: Unremarkable right shoulder radiographs. Reviewed, dictated and finalized at location M. Discharge Plan Discharge Clinical Impression: Muscle strain of right shoulder region Patient Disposition: Home Condition: Stable Instructions: Antibiotic Form, Muscle Strain (ED), How to Use a Sling (ED), Neck Pain (ED) Additional Instructions: your x-rays are negative for fracture abnormality Express Care today. This is likely muscular in nature recommended resting for 2 days may use the sling as needed to get extra support take the steroid burst as directed this will help with inflammation. May use the muscle relaxers as needed this can make you drowsy do not drive, drink alcohol or operate heavy machinery while taking this medication. Follow-up with primary care physician within the next week if symptoms not improved if you notice any significant numbness, tingling, weakness, or neck pain follow-up with emergency room for immediate evaluation. Patient Language: Citizen Of [place] Prescriptions: New methocarbamol 750 mg tablet 750 mg PO TID Qty: 30 0RF methylprednisolone [Medrol (Servando)] 4 mg tablets,dose pack See Rx Instructions .ROUTE .COMPLEX Qty: 21 0RF Rx Instructions: for 6 days No Action amoxicillin-pot clavulanate 875-125 mg tablet 1 tablet PO BID 7 Days Qty: 14 0RF hydrocodone-acetaminophen 5-325 mg tablet 1 - 2 tablet PO Q6H PRN (Reason: pain) Qty: 25 0RF hyoscyamine sulfate 0.125 mg Tablet 0.125 mg PO QID tamsulosin [Flomax] 0.4 mg capsule 0.4 mg PO HS hydrocodone-acetaminophen 5-325 mg tablet 1 - 2 tablet PO Q6H PRN (Reason: pain) Qty: 20 0RF Follow-up/Referrals: Ailyn Felix MD [Primary Care Provider] - Time of Disposition: 11:42
[2025-02-04] MEDS: KETOROLAC (*BKC) 60 MG/2 ML VIAL IM (11:44)
== END 2025-02-04 12:24 | disposition home or self-care (01) ==
PROVIDERS: Emergency Provider Nurse Practitioner Family; PCP Family Medicine
DX: S46.911A Strain of unspecified muscle, fascia and tendon at shoulder and upper arm level, right arm, initial encounter (principal); Z79.1 Long term (current) use of non-steroidal anti-inflammatories (NSAID); Z87.891 Personal history of nicotine dependence; X58.XXXA Exposure to other specified factors, initial encounter
CPT/HCPCS: 73030; 96372; 99213; A4565; G0463; J1885